=== PATIENT | male | born 1990 | race Two or more races ===

== ENCOUNTER 2022-02-08 11:20 | Emergency (ER) | payer OTHER ==
[~2022-02-08] VITALS: Ht 177.8 cm; Wt 95.3 kg
== END 2022-02-08 14:23 | disposition home or self-care (01) ==
LOC: ER 11:20
DX: N20.1 Calculus of ureter (principal)

== ENCOUNTER 2022-02-10 05:18 | Emergency (ER) | payer OTHER ==
[~2022-02-10] VITALS: Ht 177.8 cm; Wt 90.7 kg
== END 2022-02-10 09:49 | disposition home or self-care (01) ==
LOC: ER 05:18
DX: N20.1 Calculus of ureter (principal)